=== PATIENT | female | born 1965 | race Caucasian/White ===

== ENCOUNTER 2017-11-16 13:55 | Emergency (ER) | payer MEDICAID, OTHER ==
[~2017-11-16] VITALS: Ht 147.3 cm; Wt 97.1 kg
[~2017-11-16 13:55] MED LIST: ASPI1TAB31 PO; BUTA1CAP57 PO; HYDR-3240 PO
[2017-11-16 14:39] LABS: HEMATOCRIT 44.2 % (34.6-47.8); WHITE BLOOD COUNT 9.2 x10^3/uL (3.4-10)
[2017-11-16 14:50] LABS: ASPARTATE AMINO TRANSFERASE 15 U/L (15-37); BLOOD UREA NITROGEN 20 mg/dL (7-18)
[2017-11-16 17:42] VITALS: BP 141/70
== END 2017-11-16 17:44 | disposition home or self-care (01) ==
LOC: ED 15:03
DX: R10.11 Right upper quadrant pain (principal); E66.01 Morbid (severe) obesity due to excess calories
CPT/HCPCS: 36415; 76700; 80053; 81003; 85025; 93005; 99285

== ENCOUNTER 2018-02-10 11:51 | Day surgery (SDC) | payer OTHER ==
[2018-02-09 09:03] LABS: ALBUMIN 3.7 g/dL (3.4-5.0); ANION GAP 7 mmol/L (5-15); CHLORIDE 104 mmol/L (98-107)
[2018-02-09 09:08] LABS: ALANINE AMINOTRANSFERASE 13 U/L (12-78); ALKALINE PHOSPHATASE 58 U/L (45-117); BILIRUBIN,TOTAL 0.7 mg/dL (0.2-1.0); TOTAL PROTEIN 7.9 g/dL (6.4-8.2)
[~2018-02-10] VITALS: Ht 149.9 cm; Wt 92.0 kg
[~2018-02-10 11:51] MED LIST changes: +ONDA4TAB13 SL
[2018-02-10 12:16] VITALS: BP 130/81
[2018-02-10] MEDS ORDERED: ACET-1600 PO (12:18)
[2018-02-10] MEDS ORDERED: LACTATED RINGERS 1,000 ML IV SCH ×2 (12:18→14:52)
[2018-02-10] MEDS ORDERED: LIDOCAINE-MPF 1%, 2ML INFIL ONE (12:30)
[2018-02-10] MEDS ORDERED: BUPIVACAINE/PF 0.5% ONE (12:55)
[2018-02-10] MEDS ORDERED: EPINEPHRINE 1 MG/ML, 1ML ONE (12:55)
[2018-02-10] MEDS ORDERED: MIDAZOLAM 1 MG/ML, 2ML ONE (14:10)
[2018-02-10] MEDS ORDERED: FENTANYL PF 100 MCG/2ML IV PRN (14:30)
[2018-02-10] MEDS ORDERED: LABETALOL 5MG/ML, 20ML IV PRN (14:30)
[2018-02-10] MEDS ORDERED: ONDANSETRON 2MG/ML, 2ML IVPush PRN ×2 (14:30→15:00)
[2018-02-10] MEDS ORDERED: morphine SULFATE 10 MG/ML, 1ML IV PRN (14:30)
[2018-02-10] MEDS ORDERED: hydrALAzine 20 MG/ML, 1ML IV PRN (14:30)
[2018-02-10] MEDS ORDERED: ACETAMINOPHEN 325 MG TABLET PO PRN (14:30)
[2018-02-10] MEDS ORDERED: OXYcodone 5 MG/5 ML ORAL.SOL UDC ONE (14:55)
[2018-02-10] MEDS ORDERED: FENTANYL PF 100 MCG/2ML ONE (14:55)
[2018-02-10] MEDS ORDERED: morphine SULFATE 10 MG/ML, 1ML IVPush PRN (15:00)
[2018-02-10] MEDS ORDERED: FENTANYL PF 250 MCG/5ML ONE (15:17)
[2018-02-10] MEDS ORDERED: HYDROcodone/APAP 7.5-325MG/15ML UDC ONE (15:24)
[2018-02-10] MEDS ORDERED: HYDROcodone/APAP 7.5-325MG/15ML UDC PO PRN (15:30)
[2018-02-10] MEDS ORDERED: SUCCINYLCHOLINE 20 MG/ML, 10ML ONE (15:35)
[2018-02-10] MEDS ORDERED: DEXAMETHASONE 4 MG/ML, 5ML ONE (15:35)
[2018-02-10] MEDS ORDERED: LABETALOL 5MG/ML 40ML VIAL ONE (15:35)
[2018-02-10] MEDS ORDERED: ONDANSETRON 2MG/ML, 2ML ONE (15:35)
[2018-02-10] MEDS ORDERED: CEFAZOLIN 1,000 MG ONE (15:35)
[2018-02-10] MEDS ORDERED: KETOROLAC 30 MG/1 ML ONE (15:35)
[2018-02-10] MEDS ORDERED: PROPOFOL 10 MG/ML, 20ML ONE (15:35)
== END 2018-02-10 17:35 ==
LOC: OUT 11:51
PROVIDERS: ATTEND Surgery
DX: K82.8 Other specified diseases of gallbladder (principal); E66.9 Obesity, unspecified; K81.1 Chronic cholecystitis; Z88.0 Allergy status to penicillin; Z91.013 Allergy to seafood
CPT/HCPCS: 36415; 47562; 80053; 88304; C1729; J0171; J0330; J0690; J1100; J1885; J2250; J2405; J2704; J3010; J3490